=== PATIENT | male | born 1990 | race Caucasian/White ===

== ENCOUNTER 2021-05-29 08:00 | Outpatient (CLI) | payer OTHER ==
[2021-05-29 20:35] LABS: BASOPHILS % (AUTO) 0.5 %; EOSINOPHILS # (AUTO) 0.2 10^3/uL (0.0-0.7); HCT - HEMATOCRIT 43.1 % (42.0-52.0); HGB - HEMOGLOBIN 14.8 g/dL (14.0-18.0); LYMPHOCYTES # (AUTO) 2.2 10^3/uL (1.5-3.5); LYMPHOCYTES % (AUTO) 39.8 %; MEAN CORPUSCULAR HEMOGLOBIN 29.7 pg (27.0-31.0); MEAN CORPUSCULAR HGB CONC 34.3 g/dL (32.0-36.0); MEAN CORPUSCULAR VOLUME 86.5 fL (80.0-94.0); MEAN PLATELET VOLUME 9.8 fL (7.4-11.4); MONOCYTES # (AUTO) 0.4 10^3/uL (0.0-1.0); MONOCYTES % (AUTO) 7.3 %; NEUTROPHILS # (AUTO) 2.8 10^3/uL (1.5-6.6); PLT - PLATELET COUNT 257 10^3/uL (130-450); RED BLOOD COUNT 4.98 10^6/uL (4.70-6.10); RED CELL DISTRIBUTION WIDTH 12.3 % (12.0-15.0); WHITE BLOOD COUNT 5.6 x10^3/uL (4.8-10.8)
[2021-05-29 20:51] LABS: ALBUMIN 4.6 g/dL (3.2-5.5); ALBUMIN/GLOBULIN RATIO 1.6 (1.0-2.2); BILIRUBIN,TOTAL 0.5 mg/dL (0.2-1.0); CALCIUM 9.1 mg/dL (8.5-10.3); POTASSIUM 3.9 mmol/L (3.5-5.0); TOTAL PROTEIN 7.4 g/dL (6.7-8.2)
== END 2021-05-29 23:59 ==
LOC: LAB.N 08:00
PROVIDERS: ATTEND Physician Assistant
DX: R42 Dizziness and giddiness (principal)
CPT/HCPCS: 36415; 80053; 85025

== ENCOUNTER 2021-05-31 09:48 | Emergency (ER) | payer OTHER ==
[2021-05-31 10:06] VITALS: BP 148/89
[2021-05-31] MEDS ORDERED: DEXAMETHASONE 10 MG/ML VIAL PO STA (10:51)
[2021-05-31] MEDS ORDERED: CHERRY SYRUP 10 ML UDC PO ONE (10:51)
[2021-05-31] MEDS ORDERED: MECLIZINE 12.5 MG TABLET PO STA (10:51)
--- NOTE | 2021-05-31 10:53 | ED Physician Documentation ---
History of Present Illness - Stated complaint Stated Complaint: VERTIGO, LT HEAD PX - Chief complaint Chief Complaint: Neuro - History obtained from History obtained from: Patient - History of Present Illness Timing: How many days ago (6) - Additonal information Additional information: 31-year-old male who developed acute dizziness 6 days ago has been seen by his primary and placed on some meclizine which seems to help. He was told not to rely on this so he is only using this fairly sparingly. He did use some of this yesterday at work it worked all well until it wore off when it wore off he had acute vertigo again. He has been using the Jadyn maneuver and this has not resolved his symptoms as yet. He denies any cough or congestion he denies any ear pain or muffled hearing he does have cerumen bilaterally and he is working on getting that cleared up. Review of Systems Constitutional: denies: Fever Eyes: denies: Decreased vision Ears: denies: Loss of hearing, Ear pain, Drainage/discharge Nose: denies: Rhinorrhea / runny nose, Congestion Throat: denies: Sore throat Cardiac: denies: Chest pain / pressure, Palpitations Respiratory: denies: Dyspnea, Cough GI: denies: Abdominal Pain, Nausea, Vomiting : denies: Dysuria, Frequency Skin: denies: Rash Musculoskeletal: denies: Neck pain, Back pain, Extremity pain Neurologic: reports: Headache, Head injury, Other (dizziness associated with head movement). denies: Generalized weakness, Focal weakness, Numbness, LOC PD PAST MEDICAL HISTORY - Allergies Allergies/Adverse Reactions: Allergies Allergy/AdvReac Type Severity Reaction Status Date / Time No Known Drug Allergies Allergy Verified 05/31/21 10:06 PD ED PE NORMAL - Vitals Vital signs reviewed: Yes (hypertensive ) - General General: Alert and oriented X 3, No acute distress, Well developed/nourished - HEENT HEENT: Atraumatic, PERRL, EOMI, Other (cerumen bilat. 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, No motor deficit, No sensory deficit, Normal speech Eye Opening: Spontaneous Motor: Obeys Commands Verbal: Oriented GCS Score: 15 - Psych Psych: Normal mood, Normal affect Results - Vitals Vitals: Vital Signs - 24 hr 05/31/21 10:00 Temperature 36.4 C L Heart Rate 78 Respiratory 18 Rate Blood Pressure 148/89 H O2 Saturation 98 Oxygen O2 Source Room air Procedures - IVC sono (time) 1050 Bedside IVC sono: IVC measures (cm) (1.31), IVC collapsed c insp (cm) (complete), Dehydration (est <1liter deficit) PD MEDICAL DECISION MAKING - ED course Complexity details: reviewed results, re-evaluated patient, considered differential, d/w patient ED course: 31-year-old male with vertigo that is positionally related has not had complete resolution with use of the Jadyn maneuver. He is 6 days into his course and he is getting relief with meclizine. He has been told to use this sparingly and he is not using it. Today in the [facility] department he is administered a 10 mg of dexamethasone and 25 mg of meclizine. I did check the patient's inferior vena cava for dehydration he is 1.3 cm with complete collapse consistent with a deficit of less than 1 L. He is not vomiting he is able to take oral fluids. I have reassured the patient is course does not appear at this point abnormal and the expectation would be several more days of dizziness followed by a period of recovery. Departure - Departure Disposition: 01 Home, Self Care Clinical Impression: Labyrinthitis Qualifiers: Laterality: bilateral Qualified Code(s): H83.03 - Labyrinthitis, bilateral Condition: Stable Instructions: ED Labyrinthitis Follow-Up: MAXIMO Andrew [Provider Group] Comments: Marshall, it looks today like you have labyrinthitis or an inflammation to the inner ear or the balance mechanism. This usually takes about a week to 10 days to clear up and the meclizine can be helpful at reducing your symptoms. At this point symptom control until it resolves is the recommendation. Use the meclizine as needed continue to do the exercises as instructed and expect to have resolution over this next week. Forms: Activity restrictions
== END 2021-05-31 11:28 | disposition home or self-care (01) ==
LOC: ED 09:48
DX: H83.03 Labyrinthitis, bilateral (principal)
CPT/HCPCS: 99282; 99283; A9270

== ENCOUNTER 2022-04-17 16:42 | Outpatient (CLI) | payer OTHER ==
--- NOTE | 2022-04-17 18:31 | XRAY Report ---
PROCEDURE: Hand 3 View RT INDICATIONS: DISPLACE FRACTURE OF NECK OF FIFTH METACARPAL BONE TECHNIQUE: 3 views of the hand(s) acquired. COMPARISON: None FINDINGS: Bones: No fractures or dislocations. No suspicious bony lesions. Soft tissues: No suspicious soft tissue calcifications. IMPRESSION: Unremarkable right hand radiographs. No evidence of displaced fifth metacarpal fracture Reviewed by: Eladio Loera MD on 04/17/2022 5:29 PM AKST Approved by: Eladio Loera MD on 04/17/2022 5:29 PM AKST Station ID: [id number]
== END 2022-04-17 16:43 | disposition home or self-care (01) ==
LOC: DI 16:42
PROVIDERS: ATTEND Physician Assistant Medical
DX: S62.336B Displaced fracture of neck of fifth metacarpal bone, right hand, initial encounter for open fracture (principal)

== ENCOUNTER 2023-11-19 19:38 | Outpatient (CLI) | payer OTHER ==
--- NOTE | 2023-11-20 19:35 | Ultrasound Report ---
PROCEDURE: Renal (Retroperitoneal) INDICATIONS: CKD TECHNIQUE: Real-time scanning was performed of the retroperitoneal organs, with image documentation. COMPARISON: None. FINDINGS: Kidneys: Kidneys are normal in size. Right kidney measures 11 cm long; left kidney measures 11.1 cm long. Right renal cortical thickness is 1.3 cm; left renal cortical thickness is 1.3 cm. No solid masses, hydronephrosis, or nephrolithiasis. Bladder: Pre-void bladder volume is 1005 mL. Post-void residual is 21 mL. Pre-void images demonstr ate no intraluminal masses or stones. On pre-void images, bilateral ureteral jets are noted with col or Doppler interrogation. (Of note, ureteral jets may not be detectable in up to 25% of cases due to insufficient differences in specific gravity between ureteral and bladder urine). Miscellaneous: No free abdominal fluid. Incidental note of hepatic steatosis. Normal size of the pr ostate. IMPRESSION: 1.Normal appearance of the kidneys and urinary bladder. 2.Incidental note of hepatic steatosis. Reviewed by: Pal Cohen MD on 11/20/2023 7:34 PM PDT Approved by: Pal Cohen MD on 11/20/2023 7:34 PM PDT Station ID: [id number]
== END 2023-11-19 19:39 | disposition home or self-care (01) ==
LOC: DI 19:38
PROVIDERS: ATTEND Internal Medicine
DX: N18.2 Chronic kidney disease, stage 2 (mild) (principal)